=== PATIENT | male | born 1970 | race African-American/Black ===

== ENCOUNTER 2016-08-06 17:09 | Emergency (ER) | payer OTHER ==
[2016-08-06 18:58] LABS: INR 1.36 (0.9-1.2); PROTHROMBIN TIME 16.3 SECONDS (11.7-14.0); PTT 27.6 SECONDS (23.2-31.4)
[2016-08-06 19:10] LABS: BASOPHIL 0.8 % (0-2); EOSINOPHIL 0.2 % (0-5); HCT 31.1 % (42.0-52.0); HGB 10.6 g/dl (13.2-18.0); LYMPHOCYTE 17.9 % (15-48); MCH 34.1 pg (25.0-31.0); MCHC 34.1 g/dL (32.0-36.0); MONOCYTE 11.6 % (0-12); MPV 9.6 fL (6.0-9.5); NEUTROPHIL 69.5 % (41-80); PLT 190 K/uL (150-400); RBC 3.11 M/uL (4.70-6.00); RDW 18.8 % (11.5-14.0); WBC 5.1 K/uL (4.0-10.5)
[2016-08-06 19:13] LABS: ALBUMIN 4.2 g/dL (3.5-5.0); BILIRUBIN - TOTAL 2.3 mg/dL (0.1-1.0); CREATININE 0.7 mg/dL (0.7-1.2); POTASSIUM 4.3 mmol/L (3.5-5.1); TOTAL PROTEIN 8.2 g/dL (6.4-8.3)
== END 2016-08-06 23:09 | disposition other institution (70) ==
LOC: FER 17:09
PROVIDERS: Nurse Practitioner Pediatrics
DX: K74.60 Unspecified cirrhosis of liver (principal); I85.11 Secondary esophageal varices with bleeding; I44.4 Left anterior fascicular block; I10 Essential (primary) hypertension; Z79.899 Other long term (current) drug therapy
CPT/HCPCS: 36415; 71010; 80053; 80305; 82271; 83690; 84484; 85025; 85610; 85730; 86850; 86900; 86901; 93005; C9113; G0480; J2405; J3411; J3475

== ENCOUNTER 2016-10-07 15:39 | Emergency (ER) | payer OTHER ==
[2016-10-07 16:25] LABS: HCT 33.8 % (42.0-52.0); HGB 11.8 g/dl (13.2-18.0); LYMPHOCYTE 47.8 % (15-48); MCH 31.6 pg (25.0-31.0); MCHC 34.9 g/dL (32.0-36.0); MCV 90.4 fL (78.0-100.0); MONOCYTE 12.1 % (0-12); NEUTROPHIL 32.1 % (41-80); PLT 370 K/uL (150-400); RBC 3.74 M/uL (4.70-6.00); RDW 17.5 % (11.5-14.0); WBC 8.1 K/uL (4.0-10.5)
[2016-10-07 16:32] LABS: SALICYLATE < 6 ug/mL (0-300)
[2016-10-07 16:37] LABS: INR 1.15 (0.9-1.2); PROTHROMBIN TIME 14.3 SECONDS (11.7-14.0); PTT 33.6 SECONDS (23.2-31.4)
[2016-10-07 16:41] LABS: ALBUMIN 3.8 g/dL (3.5-5.0); ALCOHOL (ETOH) MEDICAL 391 mg/dL; BILIRUBIN - TOTAL 0.7 mg/dL (0.1-1.0); CREATININE 0.6 mg/dL (0.7-1.2); GLOBULIN (CALCULATION) 3.9 g/dL (2.2-4.2); POTASSIUM 3.9 mmol/L (3.5-5.1); TOTAL PROTEIN 7.7 g/dL (6.4-8.3)
== END 2016-10-07 17:44 | disposition home or self-care (01) ==
LOC: FER 15:39
PROVIDERS: Internal Medicine
DX: S01.81XA Laceration without foreign body of other part of head, initial encounter (principal); F10.220 Alcohol dependence with intoxication, uncomplicated; K74.60 Unspecified cirrhosis of liver; K21.9 Gastro-esophageal reflux disease without esophagitis; Z86.19 Personal history of other infectious and parasitic diseases; Z79.899 Other long term (current) drug therapy; Y90.8 Blood alcohol level of 240 mg/100 ml or more; W10.9XXA Fall (on) (from) unspecified stairs and steps, initial encounter
CPT/HCPCS: 36415; 70450; 80053; 83690; 85025; 85610; 85730; G0480; J1885

== ENCOUNTER 2020-06-26 18:22 | Emergency (ER) | payer OTHER ==
[~2020-06-26 18:22] MED LIST: ASPIRIN CHEWABL81 MG PO; BETAMETHASONE D60 ML TOP; CARAFATE1 GM PO; CLOTRIMAZOLE 321 GM TOP; FEOSOL325 MG PO; FOLIC ACID1 M1 PO; K-DUR20 MEQ PO; LASIX20 MG PO; LAXATIVE SUPPOS10 MG PR; LEVAQUIN750 MG PO; MIRALAX17 GM PO; MVI PO; OXY-IR 5MG5 MG PO; PERCOCET 5-3251 EACH PO; PROPRANOLOL HCL40 MG PO; PROTONIX 40MG T40 MG PO; SENNA PLUS TAB1 EACH PO; THIAMINE PO; TRAMADOL HCL50 MG PO
[2020-06-26] MEDS ORDERED: CYCLOBENZAPRINE10 MG PO (21:16)
[2020-06-26] MEDS ORDERED: NORCO 5-325 TA1 EACH PO (21:16)
== END 2020-06-26 21:30 | disposition home or self-care (01) ==
LOC: FER 18:22
DX: M54.5 Low back pain (principal); R07.9 Chest pain, unspecified; M25.571 Pain in right ankle and joints of right foot; M25.572 Pain in left ankle and joints of left foot; I10 Essential (primary) hypertension; Z87.19 Personal history of other diseases of the digestive system; V48.5XXA Car driver injured in noncollision transport accident in traffic accident, initial encounter; Y92.410 Unspecified street and highway as the place of occurrence of the external cause
CPT/HCPCS: 71045; 72040; 72072; 72100; J1885

== ENCOUNTER 2020-09-24 01:38 | Emergency (ER) | payer OTHER ==
[~2020-09-24 01:38] MED LIST changes: +CYCLOBENZAPRINE10 MG PO; +NORCO 5-325 TA1 EACH PO
[2020-09-24 03:21] LABS: BASOPHIL 1.7 % (0-2); EOSINOPHIL 15.6 % (0-5); HCT 27.7 % (42.0-52.0); HGB 9.7 g/dl (13.2-18.0); LYMPHOCYTE 10.6 % (15-48); MCH 32.6 pg (25.0-31.0); MONOCYTE 15.6 % (0-12); MPV 10.8 fL (6.0-9.5); NEUTROPHIL 56.1 % (41-80); NRBC 0.5; RBC 2.98 M/uL (4.70-6.00); RDW 28.9 % (11.5-14.0); WBC 7.4 K/uL (4.0-10.5)
[2020-09-24 03:41] LABS: PLT 130 K/uL (150-400)
[2020-09-24 03:44] LABS: ALBUMIN 2.4 g/dL (3.4-5.0); BILIRUBIN - DIRECT 4.3 mg/dL (0.00-0.20); BILIRUBIN - TOTAL 7.7 mg/dL (0.2-1.0); BUN/CREAT RATIO (CALC) 9.3 RATIO; CREATININE 0.86 mg/dL (0.67-1.17); GLOBULIN (CALCULATION) 6.3 g/dL; POTASSIUM 3.5 mmol/L (3.5-5.1); TOTAL PROTEIN 8.7 g/dL (6.4-8.2)
[2020-09-24 03:52] LABS: LACTIC ACID 2.9 mmol/L (0.4-1.9)
[2020-09-24 06:24] LABS: INR 1.74 (0.9-1.2); PROTHROMBIN TIME 19.3 SECONDS (11.4-13.6); PTT 42.7 SECONDS (22.2-34.7)
== END 2020-09-24 08:45 | disposition other institution (70) ==
LOC: FER 01:38
PROVIDERS: Emergency Medicine Emergency Medical Services
DX: K56.600 Partial intestinal obstruction, unspecified as to cause (principal); K74.60 Unspecified cirrhosis of liver; R18.8 Other ascites; J18.1 Lobar pneumonia, unspecified organism; K43.9 Ventral hernia without obstruction or gangrene; Z20.822 Contact with and (suspected) exposure to COVID-19; Z79.899 Other long term (current) drug therapy
CPT/HCPCS: 36415; 80053; 82248; 83605; 83690; 85025; 85610; 85730; 87040; 87070; 87077; 87186; J0456; J0696; J1170; J1200; J2270; J2405; J7050; Q9967; U0002

== ENCOUNTER 2020-10-18 16:05 | Emergency (ER) | payer OTHER ==
[2020-10-18 17:44] LABS: BASOPHIL 1.1 % (0-2); EOSINOPHIL 11.1 % (0-5); HCT 23.7 % (42.0-52.0); LYMPHOCYTE 18.8 % (15-48); MCH 31.5 pg (25.0-31.0); MCHC 33.8 g/dL (32.0-36.0); MCV 93.3 fL (78.0-100.0); MPV 10.1 fL (6.0-9.5); NEUTROPHIL 52.5 % (41-80); NRBC 0; PLT 147 K/uL (150-400); RBC 2.54 M/uL (4.70-6.00); RDW 22.8 % (11.5-14.0); WBC 6.4 K/uL (4.0-10.5)
[2020-10-18 17:59] LABS: CREATININE 0.63 mg/dL (0.67-1.17); POTASSIUM 3.2 mmol/L (3.5-5.1)
== END 2020-10-18 20:22 | disposition home or self-care (01) ==
LOC: FER 16:05
PROVIDERS: Nurse Practitioner Family
DX: L76.22 Postprocedural hemorrhage of skin and subcutaneous tissue following other procedure (principal); I10 Essential (primary) hypertension; Z79.899 Other long term (current) drug therapy; Z98.890 Other specified postprocedural states
CPT/HCPCS: 36415; 80048; 85025; J7040; Q9967

== ENCOUNTER 2021-01-08 13:19 | Emergency (ER) | payer OTHER ==
[2021-01-08 14:26] LABS: BASOPHIL 0.3 % (0-2); EOSINOPHIL 3.7 % (0-5); LYMPHOCYTE 8.9 % (15-48); MCH 30.4 pg (25.0-31.0); MPV 12.9 fL (6.0-9.5); NEUTROPHIL 71.7 % (41-80); NRBC 0; PLT 145 K/uL (150-400); RBC 2.96 M/uL (4.70-6.00); RDW 26.4 % (11.5-14.0); WBC 7.6 K/uL (4.0-10.5)
[2021-01-08 14:31] LABS: ALBUMIN 2.3 g/dL (3.4-5.0); BILIRUBIN - TOTAL 3.1 mg/dL (0.2-1.0); CREATININE 0.55 mg/dL (0.67-1.17); POTASSIUM 3.5 mmol/L (3.5-5.1); TOTAL PROTEIN 9.3 g/dL (6.4-8.2)
[2021-01-08] MEDS ORDERED: VIBRAMYCIN100 MG PO (17:58)
[2021-01-08] MEDS ORDERED: NORCO 5-325 TA1 EACH PO (17:58)
== END 2021-01-08 18:20 | disposition home or self-care (01) ==
LOC: FER 13:19
PROVIDERS: Nurse Practitioner Family
DX: L03.116 Cellulitis of left lower limb (principal); L03.115 Cellulitis of right lower limb; T50.995A Adverse effect of other drugs, medicaments and biological substances, initial encounter; I10 Essential (primary) hypertension; Y92.9 Unspecified place or not applicable
CPT/HCPCS: 36415; 80053; 83605; 83880; 84145; 85025; 93970; J1170; J7030

== ENCOUNTER 2021-01-22 10:30 | Inpatient (IN) | payer OTHER ==
[~2021-01-22] VITALS: Ht 172.7 cm; Wt 84.6 kg
[~2021-01-22 10:30] MED LIST changes: +VIBRAMYCIN100 MG PO
[2021-01-22 13:02] LABS: BASOPHIL 0.7 % (0-2); EOSINOPHIL 6.4 % (0-5); HCT 26.2 % (42.0-52.0); HGB 8.9 g/dl (13.2-18.0); MCH 31.8 pg (25.0-31.0); MONOCYTE 20.1 % (0-12); MPV 10.4 fL (6.0-9.5); NEUTROPHIL 60.1 % (41-80); NRBC 0.5; PLT 138 K/uL (150-400); RDW 24.9 % (11.5-14.0); WBC 7.4 K/uL (4.0-10.5)
[2021-01-22 13:28] LABS: INR 1.91 (0.9-1.2); PROTHROMBIN TIME 21.1 SECONDS (11.8-13.4); PTT 39.5 SECONDS (24.4-34.7)
[2021-01-22 13:31] LABS: ALBUMIN 1.9 g/dL (3.4-5.0); ALKALINE PHOSHATASE 148 U/L (46-116); ALT 44 U/L (16-63); AST 84 U/L (15-37); BILIRUBIN - TOTAL 4.8 mg/dL (0.2-1.0); BUN 49 mg/dL (7-18); BUN/CREAT RATIO (CALC) 25.9 RATIO; CHLORIDE 92 mmol/L (98-107); CO2 (BICARBONATE) 25 mmol/L (21-32); CPK 96 U/L (39-308); CREATININE 1.89 mg/dL (0.67-1.17); GLOBULIN (CALCULATION) 6.2 g/dL; GLUCOSE 120 mg/dL (74-106); LDH 274 U/L (85-227); MAGNESIUM 1.7 mg/dL (1.8-2.4); TOTAL PROTEIN 8.1 g/dL (6.4-8.2)
[2021-01-22 13:43] LABS: D-DIMER 11.07 ug/mLFEU (0.00-0.41)
[2021-01-22 13:45] LABS: LACTIC ACID 3.1 mmol/L (0.4-1.9)
[2021-01-22 13:48] LABS: MCV 93.6 fL (78.0-100.0)
[2021-01-23 06:03] LABS: ALBUMIN 1.7 g/dL (3.4-5.0); BILIRUBIN - TOTAL 4.8 mg/dL (0.2-1.0); BUN/CREAT RATIO (CALC) 26.5 RATIO; C-REACTIVE PROTEIN 9.7 mg/dL (<=0.90); CREATININE 1.62 mg/dL (0.67-1.17); GLOBULIN (CALCULATION) 5.3 g/dL; MAGNESIUM 2.1 mg/dL (1.8-2.4); POTASSIUM 4.6 mmol/L (3.5-5.1)
[2021-01-23 06:57] LABS: BASOPHIL 0.7 % (0-2); EOSINOPHIL 7.3 % (0-5); HCT 24.6 % (42.0-52.0); HGB 8.2 g/dl (13.2-18.0); LYMPHOCYTE 12.1 % (15-48); MCH 32.2 pg (25.0-31.0); MCHC 33.3 g/dL (32.0-36.0); MCV 96.5 fL (78.0-100.0); MONOCYTE 18.4 % (0-12); MPV 10.1 fL (6.0-9.5); NRBC 0.3; PLT 111 K/uL (150-400); RBC 2.55 M/uL (4.70-6.00); RDW 25.4 % (11.5-14.0); WBC 7.5 K/uL (4.0-10.5)
[2021-01-24 05:42] LABS: BASOPHIL 0.8 % (0-2); EOSINOPHIL 8.8 % (0-5); HCT 25.1 % (42.0-52.0); HGB 8.4 g/dl (13.2-18.0); LYMPHOCYTE 11.2 % (15-48); MCH 32.2 pg (25.0-31.0); MCHC 33.5 g/dL (32.0-36.0); MCV 96.2 fL (78.0-100.0); MONOCYTE 15.1 % (0-12); MPV 10.2 fL (6.0-9.5); NEUTROPHIL 63.5 % (41-80); NRBC 0.4; PLT 109 K/uL (150-400); RBC 2.61 M/uL (4.70-6.00); RDW 25.2 % (11.5-14.0)
[2021-01-24 05:56] LABS: ALBUMIN 1.6 g/dL (3.4-5.0); BUN/CREAT RATIO (CALC) 22.1 RATIO; CREATININE 1.54 mg/dL (0.67-1.17); GLOBULIN (CALCULATION) 5.6 g/dL; POTASSIUM 4.8 mmol/L (3.5-5.1); TOTAL PROTEIN 7.2 g/dL (6.4-8.2)
[2021-01-26 05:04] LABS: BASOPHIL 0.8 % (0-2); EOSINOPHIL 11.3 % (0-5); HCT 23.6 % (42.0-52.0); HGB 7.9 g/dl (13.2-18.0); LYMPHOCYTE 14.3 % (15-48); MCH 32.9 pg (25.0-31.0); MCHC 33.5 g/dL (32.0-36.0); MCV 98.3 fL (78.0-100.0); MONOCYTE 17.2 % (0-12); NEUTROPHIL 54.7 % (41-80); NRBC 0.2; PLT 121 K/uL (150-400); RDW 25.8 % (11.5-14.0); WBC 8.4 K/uL (4.0-10.5)
[2021-01-26 05:20] LABS: BUN/CREAT RATIO (CALC) 17.8 RATIO; CREATININE 1.46 mg/dL (0.67-1.17); POTASSIUM 3.9 mmol/L (3.5-5.1)
[2021-01-29 06:56] LABS: BASOPHIL 0.9 % (0-2); EOSINOPHIL 5.5 % (0-5); HCT 22.9 % (42.0-52.0); HGB 7.5 g/dl (13.2-18.0); LYMPHOCYTE 16.1 % (15-48); MCH 32.5 pg (25.0-31.0); MCHC 32.8 g/dL (32.0-36.0); MCV 99.1 fL (78.0-100.0); MONOCYTE 18.4 % (0-12); MPV 10.5 fL (6.0-9.5); NEUTROPHIL 58.5 % (41-80); NRBC 0; PLT 112 K/uL (150-400); RBC 2.31 M/uL (4.70-6.00); RDW 25.9 % (11.5-14.0); WBC 8.2 K/uL (4.0-10.5)
[2021-01-29 07:29] LABS: ALBUMIN 1.5 g/dL (3.4-5.0); BILIRUBIN - TOTAL 2.6 mg/dL (0.2-1.0); BUN/CREAT RATIO (CALC) 13.9 RATIO; CREATININE 1.44 mg/dL (0.67-1.17); GLOBULIN (CALCULATION) 5.8 g/dL; POTASSIUM 3.2 mmol/L (3.5-5.1); TOTAL PROTEIN 7.3 g/dL (6.4-8.2)
[2021-01-29] MEDS ORDERED: OXY-IR 5MG5 MG PO (14:29)
== END 2021-01-29 15:40 | DRG 596 ==
LOC: FER 10:30 → FMS 16:56
PROVIDERS: Allergy & Immunology Allergy; Emergency Medicine; Nurse Practitioner; ADMIT Internal Medicine
PROC: 05HC33Z Insertion of Infusion Device into Left Basilic Vein, Percutaneous Approach (ICD-10-PCS; principal; 2021-01-29)
DX: L00 Staphylococcal scalded skin syndrome (principal); N17.9 Acute kidney failure, unspecified; E87.1 Hypo-osmolality and hyponatremia; L03.116 Cellulitis of left lower limb; L03.115 Cellulitis of right lower limb; K70.30 Alcoholic cirrhosis of liver without ascites; Z20.822 Contact with and (suspected) exposure to COVID-19; F31.9 Bipolar disorder, unspecified; N18.30 Chronic kidney disease, stage 3 unspecified; T39.395A Adverse effect of other nonsteroidal anti-inflammatory drugs [NSAID], initial encounter; L40.9 Psoriasis, unspecified; D63.1 Anemia in chronic kidney disease; I12.9 Hypertensive chronic kidney disease with stage 1 through stage 4 chronic kidney disease, or unspecified chronic kidney disease; F20.9 Schizophrenia, unspecified; Z96.642 Presence of left artificial hip joint; G89.29 Other chronic pain; Z98.890 Other specified postprocedural states; Z83.3 Family history of diabetes mellitus; Z82.49 Family history of ischemic heart disease and other diseases of the circulatory system; Z82.3 Family history of stroke; Z79.899 Other long term (current) drug therapy
CPT/HCPCS: 36415; 71045; 80048; 80053; 80202; 82043; 82550; 82728; 83605; 83615; 83735; 83880; 84145; 84300; 85025; 85379; 85610; 85730; 86140; 87040; 87070; 87077; 87088; 87186; 87205; 93970; 97162; 97166; 97530-GP; 97535; C1751; G0480; J1170; J1642; J1650; J2405; J2543; J2916; J3370; J3411; J3475; J7030; J7050; U0002

== ENCOUNTER 2021-02-01 02:38 | Emergency (ER) | payer OTHER ==
[2021-02-01 03:26] LABS: BASOPHIL 1.1 % (0-2); EOSINOPHIL 5.5 % (0-5); HCT 22.2 % (42.0-52.0); HGB 7.3 g/dl (13.2-18.0); LYMPHOCYTE 14.5 % (15-48); MCH 33.5 pg (25.0-31.0); MCHC 32.9 g/dL (32.0-36.0); MCV 101.8 fL (78.0-100.0); NEUTROPHIL 64.1 % (41-80); NRBC 0.2; PLT 119 K/uL (150-400); RBC 2.18 M/uL (4.70-6.00); RDW 26.3 % (11.5-14.0); WBC 8.8 K/uL (4.0-10.5)
[2021-02-01 03:32] LABS: ALBUMIN 1.5 g/dL (3.4-5.0); BUN/CREAT RATIO (CALC) 14.5 RATIO; C-REACTIVE PROTEIN 4.3 mg/dL (<=0.90); CREATININE 1.17 mg/dL (0.67-1.17); GLOBULIN (CALCULATION) 5.7 g/dL; POTASSIUM 4.1 mmol/L (3.5-5.1); TOTAL PROTEIN 7.2 g/dL (6.4-8.2)
[2021-02-01 03:37] LABS: INR 1.6 (0.9-1.2); PROTHROMBIN TIME 18.3 SECONDS (11.8-13.4); PTT 41.1 SECONDS (24.4-34.7)
[2021-02-01 04:30] LABS: IRON % SATURATION 22.6 %SAT (20-50)
== END 2021-02-01 06:26 | disposition home or self-care (01) ==
LOC: FER 02:38
PROVIDERS: Emergency Medicine Emergency Medical Services
DX: D64.9 Anemia, unspecified (principal); T50.99 Poisoning by, adverse effect of and underdosing of other drugs, medicaments and biological substances; T25.4 Corrosion of unspecified degree of ankle and foot; I10 Essential (primary) hypertension; Z87.828 Personal history of other (healed) physical injury and trauma
CPT/HCPCS: 36415; 71045; 80053; 82270; 83540; 83550; 85025; 85610; 85730; 86140; 86850; 86900; 86901; 93005; J1170; J2405

== ENCOUNTER 2021-02-07 10:32 | Emergency (ER) | payer OTHER ==
[~2021-02-07] VITALS: Ht 172.7 cm; Wt 98.4 kg
[2021-02-07 13:34] LABS: BASOPHIL 1.5 % (0-2); HCT 25.7 % (42.0-52.0); HGB 8.3 g/dl (13.2-18.0); LYMPHOCYTE 15.7 % (15-48); MCH 34.9 pg (25.0-31.0); MCHC 32.3 g/dL (32.0-36.0); MONOCYTE 10.8 % (0-12); MPV 10.2 fL (6.0-9.5); NEUTROPHIL 63.7 % (41-80); NRBC 0; PLT 124 K/uL (150-400); RBC 2.38 M/uL (4.70-6.00); RDW 25.9 % (11.5-14.0); WBC 5.9 K/uL (4.0-10.5)
[2021-02-07 13:40] LABS: ALBUMIN 1.7 g/dL (3.4-5.0); BUN/CREAT RATIO (CALC) 19.7 RATIO; CREATININE 1.27 mg/dL (0.67-1.17); GLOBULIN (CALCULATION) 6.9 g/dL; POTASSIUM 4.7 mmol/L (3.5-5.1); TOTAL PROTEIN 8.6 g/dL (6.4-8.2)
[2021-02-07] MEDS ORDERED: LOTRIMIN30 ML TOP (18:00)
[2021-02-07] MEDS ORDERED: NORCO 5-325 TA1 EACH PO (18:00)
[2021-02-07] MEDS ORDERED: LASIX40 MG PO (18:00)
== END 2021-02-07 18:00 | disposition home or self-care (01) ==
LOC: FER 10:32
PROVIDERS: Internal Medicine
DX: K74.60 Unspecified cirrhosis of liver (principal); I12.9 Hypertensive chronic kidney disease with stage 1 through stage 4 chronic kidney disease, or unspecified chronic kidney disease; N18.9 Chronic kidney disease, unspecified; D63.1 Anemia in chronic kidney disease; B37.2 Candidiasis of skin and nail; G89.29 Other chronic pain; Z88.7 Allergy status to serum and vaccine
CPT/HCPCS: 36415; 80053; 82140; 83880; 85025; 93970

== ENCOUNTER 2021-03-26 04:26 | Emergency (ER) | payer OTHER ==
[~2021-03-26 04:26] MED LIST changes: +LASIX40 MG PO; +LOTRIMIN30 ML TOP
[2021-03-26 07:32] LABS: BASOPHIL 1.1 % (0-2); EOSINOPHIL 18.6 % (0-5); HCT 26.7 % (42.0-52.0); LYMPHOCYTE 19.7 % (15-48); MCH 34.9 pg (25.0-31.0); MCHC 33.7 g/dL (32.0-36.0); MCV 103.5 fL (78.0-100.0); MONOCYTE 18.9 % (0-12); MPV 10.4 fL (6.0-9.5); NEUTROPHIL 41.3 % (41-80); NRBC 0.9; PLT 140 K/uL (150-400); RBC 2.58 M/uL (4.70-6.00); RDW 23.1 % (11.5-14.0); WBC 8.5 K/uL (4.0-10.5)
[2021-03-26 07:39] LABS: INR 1.59 (0.9-1.2); PROTHROMBIN TIME 18.2 SECONDS (11.8-13.4); PTT 39.4 SECONDS (24.4-34.7)
[2021-03-26 07:43] LABS: ALBUMIN 2.6 g/dL (3.4-5.0); BILIRUBIN - TOTAL 1.5 mg/dL (0.2-1.0); BUN/CREAT RATIO (CALC) 16.1 RATIO; CREATININE 0.87 mg/dL (0.67-1.17); GLOBULIN (CALCULATION) 5.4 g/dL; POTASSIUM 3.2 mmol/L (3.5-5.1)
[2021-03-26] MEDS ORDERED: SPIRONOLACTONE25 M1 PO (10:05)
[2021-03-26 10:40] LABS: BILIRUBIN 1+ mg/dL (NEGATIVE); BLOOD NEGATIVE Ery/uL (NEGATIVE); CLARITY CLEAR (CLEAR); COLOR YELLOW (YELLOW); GLUCOSE (U) NORMAL (NORMAL); LEUKOCYTES NEGATIVE Leu/uL (NEGATIVE); NITRITE NEGATIVE (NEGATIVE); PROTEIN NEGATIVE (NEGATIVE)
== END 2021-03-26 10:58 | disposition home or self-care (01) ==
LOC: FER 04:26
PROVIDERS: Internal Medicine
DX: K74.60 Unspecified cirrhosis of liver (principal); I10 Essential (primary) hypertension; Z88.8 Allergy status to other drugs, medicaments and biological substances; Z98.890 Other specified postprocedural states
CPT/HCPCS: 36415; 80053; 81003; 84145; 85025; 85610; 85730; 93970; J1170

== ENCOUNTER 2021-05-18 19:20 | Emergency (ER) | payer OTHER ==
[~2021-05-18 19:20] MED LIST changes: +SPIRONOLACTONE25 M1 PO
[2021-05-18 19:50] LABS: BASOPHIL 1.4 % (0-2); EOSINOPHIL 19.8 % (0-5); HGB 7.8 g/dl (13.2-18.0); MCH 35.3 pg (25.0-31.0); MCHC 33.9 g/dL (32.0-36.0); MCV 104.1 fL (78.0-100.0); MONOCYTE 12.5 % (0-12); MPV 9.3 fL (6.0-9.5); NRBC 0; PLT 162 K/uL (150-400); RBC 2.21 M/uL (4.70-6.00); RDW 20.2 % (11.5-14.0); WBC 7.6 K/uL (4.0-10.5)
[2021-05-18 20:02] LABS: INR 1.49 (0.9-1.2); PROTHROMBIN TIME 17.3 SECONDS (11.8-13.4); PTT 38.9 SECONDS (24.4-34.7)
[2021-05-18 20:07] LABS: ALBUMIN 2.3 g/dL (3.4-5.0); BILIRUBIN - TOTAL 1.1 mg/dL (0.2-1.0); BUN/CREAT RATIO (CALC) 8.4 RATIO; CREATININE 0.83 mg/dL (0.67-1.17); GLOBULIN (CALCULATION) 5.4 g/dL; POTASSIUM 3.9 mmol/L (3.5-5.1); TOTAL PROTEIN 7.7 g/dL (6.4-8.2)
[2021-05-18 20:24] LABS: RETICULOCYTE COUNT 2.9 % (1.0-2.0)
[2021-05-18 20:44] LABS: LACTIC ACID 4.1 mmol/L (0.4-1.9)
[2021-05-18 20:52] LABS: INFLUENZA A NAA NEGATIVE (NEGATIVE)
[2021-05-18 20:54] LABS: CORONAVIRUS 2019 SARS-COV-2 POSITIVE (NEGATIVE)
== END 2021-05-19 04:00 | disposition home or self-care (01) ==
LOC: FER 19:20
PROVIDERS: Internal Medicine
DX: U07.1 COVID-19 (principal); J12.82 Pneumonia due to coronavirus disease 2019; I50.9 Heart failure, unspecified; I25.10 Atherosclerotic heart disease of native coronary artery without angina pectoris; Z79.899 Other long term (current) drug therapy
CPT/HCPCS: 36415; 70450; 71250; 80053; 82140; 83605; 83880; 84484; 85025; 85610; 85730; 93005; J1170; J3490; J7040; U0002

== ENCOUNTER 2021-05-27 11:21 | Inpatient (IN) | payer OTHER ==
[~2021-05-27] VITALS: Ht 172.7 cm; Wt 111.8 kg
[2021-05-27 12:03] LABS: BASOPHIL 0.2 % (0-2); EOSINOPHIL 0 % (0-5); HCT 35.4 % (42.0-52.0); HGB 11.2 g/dl (13.2-18.0); LYMPHOCYTE 10.7 % (15-48); MCH 33.9 pg (25.0-31.0); MCHC 31.6 g/dL (32.0-36.0); MCV 107.3 fL (78.0-100.0); MONOCYTE 7.2 % (0-12); MPV 11.5 fL (6.0-9.5); NEUTROPHIL 81.4 % (41-80); NRBC 0.6; PLT 145 K/uL (150-400); RDW 20.6 % (11.5-14.0); WBC 10.7 K/uL (4.0-10.5)
[2021-05-27 13:44] LABS: INFLUENZA A NAA NEGATIVE (NEGATIVE)
[2021-05-27 13:51] LABS: CORONAVIRUS 2019 SARS-COV-2 POSITIVE (NEGATIVE)
[2021-05-27 15:34] LABS: ALBUMIN 2.1 g/dL (3.4-5.0); BILIRUBIN - TOTAL 1.6 mg/dL (0.2-1.0); BUN/CREAT RATIO (CALC) 20.5 RATIO; CREATININE 1.27 mg/dL (0.67-1.17); GLOBULIN (CALCULATION) 5.9 g/dL; POTASSIUM 5.2 mmol/L (3.5-5.1)
[2021-05-27 15:38] LABS: LACTIC ACID 6.7 mmol/L (0.4-1.9)
[2021-05-27 17:32] LABS: INR 1.91 (0.9-1.2); PROTHROMBIN TIME 21.1 SECONDS (11.8-13.4)
[2021-05-27 17:47] LABS: D-DIMER 5.23 ug/mLFEU (0.00-0.41)
[2021-05-27 20:27] LABS: IRON % SATURATION 10.2 %SAT (20-50)
[2021-05-28 06:22] LABS: BUN/CREAT RATIO (CALC) 22.3 RATIO; C-REACTIVE PROTEIN 14.6 mg/dL (<=0.90); CREATININE 1.57 mg/dL (0.67-1.17); POTASSIUM 4.6 mmol/L (3.5-5.1)
[2021-05-28 06:36] LABS: BASOPHIL 0.1 % (0-2); EOSINOPHIL 0 % (0-5); HCT 30.6 % (42.0-52.0); HGB 9.9 g/dl (13.2-18.0); LYMPHOCYTE 6.3 % (15-48); MCH 33.8 pg (25.0-31.0); MCHC 32.4 g/dL (32.0-36.0); MCV 104.4 fL (78.0-100.0); MONOCYTE 4.6 % (0-12); MPV 11.7 fL (6.0-9.5); NEUTROPHIL 88.5 % (41-80); NRBC 0.5; PLT 116 K/uL (150-400); RBC 2.93 M/uL (4.70-6.00); RDW 19.9 % (11.5-14.0)
[2021-05-28 06:37] LABS: WBC 20.8 K/uL (4.0-10.5)
[2021-05-28 09:12] LABS: LACTIC ACID 3.1 mmol/L (0.4-1.9)
[2021-05-28 10:38] LABS: BILIRUBIN NEGATIVE (NEGATIVE); BLOOD 2+ Ery/uL (NEGATIVE); CLARITY HAZY (CLEAR); COLOR YELLOW (YELLOW); GLUCOSE (U) NORMAL (NORMAL); LEUKOCYTES NEGATIVE Leu/uL (NEGATIVE); NITRITE NEGATIVE (NEGATIVE); PROTEIN TRACE (LOW) mg/dL (NEGATIVE); SPECIFIC GRAVITY >=1.030 (1.001-1.030); UROBILINOGEN 0.2 mg/dL (0.2-1.0); pH 5.5 (5.0-9.0)
[2021-05-28 10:51] LABS: BACTERIA 1+; SQUAMOUS EPITHELIAL CELLS RARE; URINARY RBC 20-50
--- NOTE | 2021-05-28 11:48 | NUR ---
MERCADO CATHETER PLACED AT 0800 UNDER STERILE TECHNIQUE. PATIENT TOLERATED PROCEDURE WELL. URINE SPECIMEN COLLECTED AND SENT TO LAB. JUANCARLOS CHACON RN.
[2021-05-28 14:19] LABS: BUN/CREAT RATIO (CALC) 23.4 RATIO; CREATININE 1.54 mg/dL (0.67-1.17); POTASSIUM 4.8 mmol/L (3.5-5.1)
--- NOTE | 2021-05-28 17:37 | NUR ---
LEFT JUGULAR CENTRAL LINE PLACED BY MJ BRADSHAW MD. LINE CLEARED TO BE USED BY CXR. PATIENT TOLERATED PROCEDURE. JUANCARLOS CHACON RN.
--- NOTE | 2021-05-28 17:56 | NUR ---
1030 PT WAS TRANSPORTED TO [facility] WITH MONITOR,BY MYSELF AND RT ALMA, RT AMADO TOOK THE BIPAP DOWN TO PUT HIM ON TO KEEP HIS SATS UP.
--- NOTE | 2021-05-28 18:01 | NUR ---
PT WAS STARTED ON A HEPARIN GTT INTIAL PTT 27 PT RECEIVED 1 UNIT OF BLOOD FOR A HGB OF 7.6
[2021-05-29 09:26] LABS: BASOPHIL 0.1 % (0-2); EOSINOPHIL 0 % (0-5); HCT 21.6 % (42.0-52.0); HGB 7.4 g/dl (13.2-18.0); LYMPHOCYTE 10.7 % (15-48); MCH 34.4 pg (25.0-31.0); MCHC 34.3 g/dL (32.0-36.0); MCV 100.5 fL (78.0-100.0); MONOCYTE 3.9 % (0-12); MPV 11.6 fL (6.0-9.5); NEUTROPHIL 84.7 % (41-80); NRBC 0.3; PLT 93 K/uL (150-400); RBC 2.15 M/uL (4.70-6.00); RDW 19.5 % (11.5-14.0); WBC 12.5 K/uL (4.0-10.5)
[2021-05-29 09:51] LABS: ALBUMIN 1.9 g/dL (3.4-5.0); BILIRUBIN - TOTAL 1.1 mg/dL (0.2-1.0); BUN/CREAT RATIO (CALC) 25.3 RATIO; CREATININE 1.86 mg/dL (0.67-1.17); GLOBULIN (CALCULATION) 5.4 g/dL; POTASSIUM 4.6 mmol/L (3.5-5.1); TOTAL PROTEIN 7.3 g/dL (6.4-8.2)
[2021-05-29 15:37] LABS: HGB 7.1 g/dL (13.2-18.0)
[2021-05-29 15:48] LABS: BUN/CREAT RATIO (CALC) 26.6 RATIO; CREATININE 1.77 mg/dL (0.67-1.17); POTASSIUM 4.5 mmol/L (3.5-5.1)
--- NOTE | 2021-05-29 16:31 | NUR ---
05/29/21 Per telephone conversation with patient's mother, Dulce Michael, [phone]. Mr. Michael lives with his mother. He is not employed and has a pending SSD application. Mr. Michael uses a cane for amb. - He has not drank etoh in 2 weeks per his mother. - Ms. Michael selected [facility] if 02 is needed at discharge.
[2021-05-30 06:26] LABS: BASOPHIL 0.1 % (0-2); EOSINOPHIL 0 % (0-5); HCT 21.7 % (42.0-52.0); HGB 7.4 g/dl (13.2-18.0); LYMPHOCYTE 10.3 % (15-48); MCH 33.9 pg (25.0-31.0); MCHC 34.1 g/dL (32.0-36.0); MCV 99.5 fL (78.0-100.0); MONOCYTE 5.4 % (0-12); MPV 11.1 fL (6.0-9.5); NEUTROPHIL 83.6 % (41-80); NRBC 0.2; RBC 2.18 M/uL (4.70-6.00); RDW 19.2 % (11.5-14.0)
[2021-05-30 06:27] LABS: PLT 88 K/uL (150-400); WBC 12.8 K/uL (4.0-10.5)
[2021-05-30 06:37] LABS: INR 2.18 (0.9-1.2); PROTHROMBIN TIME 23.4 SECONDS (11.8-13.4)
[2021-05-30 06:50] LABS: ALBUMIN 2.3 g/dL (3.4-5.0); BILIRUBIN - DIRECT 0.8 mg/dL (0.00-0.20); BILIRUBIN - TOTAL 1.2 mg/dL (0.2-1.0); BUN/CREAT RATIO (CALC) 28.4 RATIO; C-REACTIVE PROTEIN 9.4 mg/dL (<=0.90); CREATININE 1.69 mg/dL (0.67-1.17); GLOBULIN (CALCULATION) 5.4 g/dL; POTASSIUM 4.3 mmol/L (3.5-5.1); TOTAL PROTEIN 7.7 g/dL (6.4-8.2)
[2021-05-30 15:58] LABS: BUN/CREAT RATIO (CALC) 29.4 RATIO; CREATININE 1.63 mg/dL (0.67-1.17); POTASSIUM 4.1 mmol/L (3.5-5.1)
[2021-05-31 04:19] LABS: INR 2.48 (0.9-1.2); PROTHROMBIN TIME 25.9 SECONDS (11.8-13.4)
[2021-05-31 04:25] LABS: ALBUMIN 2.8 g/dL (3.4-5.0); BILIRUBIN - TOTAL 1.3 mg/dL (0.2-1.0); BUN/CREAT RATIO (CALC) 33.1 RATIO; CREATININE 1.45 mg/dL (0.67-1.17); GLOBULIN (CALCULATION) 4.8 g/dL; POTASSIUM 3.9 mmol/L (3.5-5.1); TOTAL PROTEIN 7.6 g/dL (6.4-8.2)
[2021-05-31 04:29] LABS: BASOPHIL 0.1 % (0-2); EOSINOPHIL 0 % (0-5); HCT 19.7 % (42.0-52.0); HGB 6.7 g/dl (13.2-18.0); MONOCYTE 7.8 % (0-12); MPV 11.9 fL (6.0-9.5); NEUTROPHIL 84.8 % (41-80); NRBC 0.4; RBC 1.97 M/uL (4.70-6.00); RDW 19.6 % (11.5-14.0); WBC 14.2 K/uL (4.0-10.5)
[2021-05-31 04:30] LABS: LYMPHOCYTE 5.9 % (15-48)
[2021-05-31 04:31] LABS: PLT 70 K/uL (150-400)
--- NOTE | 2021-05-31 19:24 | NUR ---
FIRST UNIT OF BLOOD STARTED AT 1410 SCANNING DONE BUT DID NOT SHOW UP LATER. RESCANNED LATER FOR DOCUMENTATION
[2021-06-01 06:37] LABS: BASOPHIL 0.1 % (0-2); EOSINOPHIL 0 % (0-5); HCT 24.3 % (42.0-52.0); HGB 8.4 g/dl (13.2-18.0); LYMPHOCYTE 3.2 % (15-48); MCH 32.9 pg (25.0-31.0); MCHC 34.6 g/dL (32.0-36.0); MONOCYTE 10.6 % (0-12); MPV 12.4 fL (6.0-9.5); NEUTROPHIL 85.3 % (41-80); NRBC 0.4; RBC 2.55 M/uL (4.70-6.00); RDW 18.6 % (11.5-14.0)
[2021-06-01 06:42] LABS: MCV 95.3 fL (78.0-100.0); PLT 62 K/uL (150-400)
[2021-06-01 06:46] LABS: INR 2.34 (0.9-1.2); PROTHROMBIN TIME 24.7 SECONDS (11.8-13.4)
[2021-06-01 06:55] LABS: CREATININE 1.23 mg/dL (0.67-1.17); POTASSIUM 4.7 mmol/L (3.5-5.1)
[2021-06-01 11:19] LABS: INR 2.24 (0.9-1.2); PROTHROMBIN TIME 23.9 SECONDS (11.8-13.4)
[2021-06-02 06:09] LABS: BASOPHIL 0.1 % (0-2); EOSINOPHIL 0 % (0-5); HCT 23.9 % (42.0-52.0); HGB 8.3 g/dl (13.2-18.0); LYMPHOCYTE 2.7 % (15-48); MCH 32.9 pg (25.0-31.0); MCHC 34.7 g/dL (32.0-36.0); MCV 94.8 fL (78.0-100.0); MONOCYTE 13.6 % (0-12); MPV 12.5 fL (6.0-9.5); NEUTROPHIL 82.6 % (41-80); NRBC 0.6; RBC 2.52 M/uL (4.70-6.00); RDW 18.7 % (11.5-14.0); WBC 12.4 K/uL (4.0-10.5)
[2021-06-02 06:22] LABS: PLT 48 K/uL (150-400)
[2021-06-02 06:27] LABS: ALBUMIN 3.4 g/dL (3.4-5.0); BILIRUBIN - TOTAL 1.9 mg/dL (0.2-1.0); BUN/CREAT RATIO (CALC) 34.9 RATIO; C-REACTIVE PROTEIN 4.2 mg/dL (<=0.90); CREATININE 1.29 mg/dL (0.67-1.17); GLOBULIN (CALCULATION) 4.2 g/dL; POTASSIUM 4.2 mmol/L (3.5-5.1); TOTAL PROTEIN 7.6 g/dL (6.4-8.2)
--- NOTE | 2021-06-02 18:14 | NUR ---
06/02/21 Mr. Michael was transferred to [facility].
== END 2021-06-02 12:00 | disposition other institution (70) | DRG 871 ==
LOC: FER 11:21 → EDBD 11:21 → FICU 17:10
PROVIDERS: Emergency Medicine; Nurse Practitioner; ADMIT Family Medicine
PROC: XW033E5 Introduction of Remdesivir Anti-infective into Peripheral Vein, Percutaneous Approach, New Technology Group 5 (ICD-10-PCS; principal; 2021-05-27)
PROC: 3E0333Z Introduction of Anti-inflammatory into Peripheral Vein, Percutaneous Approach (ICD-10-PCS; 2021-05-27)
PROC: XW0DXM6 Introduction of Baricitinib into Mouth and Pharynx, External Approach, New Technology Group 6 (ICD-10-PCS; 2021-05-27)
PROC: 5A09357 Assistance with Respiratory Ventilation, Less than 24 Consecutive Hours, Continuous Positive Airway Pressure (ICD-10-PCS; 2021-05-27)
PROC: B24BZZZ Ultrasonography of Heart with Aorta (ICD-10-PCS; 2021-05-28)
PROC: 02HV33Z Insertion of Infusion Device into Superior Vena Cava, Percutaneous Approach (ICD-10-PCS; 2021-05-28)
PROC: 30233N1 Transfusion of Nonautologous Red Blood Cells into Peripheral Vein, Percutaneous Approach (ICD-10-PCS; 2021-05-31)
DX: A41.02 Sepsis due to Methicillin resistant Staphylococcus aureus (principal); R65.21 Severe sepsis with septic shock; J96.01 Acute respiratory failure with hypoxia; I33.0 Acute and subacute infective endocarditis; U07.1 COVID-19; I85.11 Secondary esophageal varices with bleeding; J12.82 Pneumonia due to coronavirus disease 2019; J15.9 Unspecified bacterial pneumonia; G93.41 Metabolic encephalopathy; K72.00 Acute and subacute hepatic failure without coma; K92.2 Gastrointestinal hemorrhage, unspecified; D62 Acute posthemorrhagic anemia; N17.9 Acute kidney failure, unspecified; E87.2 Acidosis; I10 Essential (primary) hypertension; E87.5 Hyperkalemia; K70.30 Alcoholic cirrhosis of liver without ascites; Z96.642 Presence of left artificial hip joint; Z80.8 Family history of malignant neoplasm of other organs or systems; Z87.11 Personal history of peptic ulcer disease; Z82.49 Family history of ischemic heart disease and other diseases of the circulatory system; Z98.890 Other specified postprocedural states
CPT/HCPCS: 36415; 36430; 36600; 71045; 71275; 80048; 80053; 80076; 80202; 81001; 82550; 82607; 82728; 82803; 83036; 83540; 83550; 83605; 83880; 84145; 84484; 85018; 85025; 85379; 85610; 86140; 86850; 86900; 86901; 86922; 87040; 87077; 87186; 93005; 93971; 94010; 94640; 94660; 94762; C9113; C9399; J0360; J0456; J0692; J0696; J1100; J1650; J1940; J2270; J3370; J7030; J7040; J7050; J8540; P9016; P9046; P9047; Q9967; U0002